=== PATIENT | male | born 1960 | race Caucasian/White ===

== ENCOUNTER 2016-11-23 10:22 | Observation (INO) | payer OTHER ==
[2016-11-23] MEDS ORDERED: HEPARIN SODIUM,PORCINE/D5W PMX 25,000 UNIT in DEXTROSE/WATER 1 500ML.BAG IV STA (10:38)
[2016-11-23] MEDS ORDERED: HEPARIN SODIUM,PORCINE 5,000 UNIT/ML 1 ML VIAL IV STA (10:38)
[2016-11-23] MEDS ORDERED: NITROGLYCERIN OINT 1 INCH/GM PACKET TOPICAL STA (10:38)
[2016-11-23] MEDS ORDERED: SODIUM CHLORIDE 0.9% 1,000 ML IV STA (10:38)
--- NOTE | 2016-11-23 10:45 | ED ---
Chest Pain HPI - General Chief Complaint: Chest Pain Stated Complaint: CHEST PAIN, SENT BY DR GARCIA Time Seen by Provider: 11/23/16 10:31 Source: patient, RN notes reviewed Mode of arrival: wheelchair Limitations: no limitations - History of Present Illness Initial Comments: This is a 56-year-old male with a history of previous heart attack cardiac arrests and stent placement who states he's recently been having episodic chest pain they get really worse earlier this week been on and off he saw his doctor in the office prior to admission he was complaining of 10 he saw his doctor in the office earlier today. He was given oxygen nitroglycerin and aspirin as stated he did appear to be pale at the time of his evaluation in the office and complained of squeezing chest pain. He was complaining earlier of 9/10 severity pain tightness he states is down to about 3 right now in the office he was given aspirin and nitroglycerin which did help the pain. He denies any nausea vomiting fevers chills or sweats. He points to his right lower midsternal region. He does not know if this feels similar to his previous episode is again he had a cardiac arrest at that time. He does have a strong family history of heart disease and stroke. He does smoke 4 cigarettes a day. The patient refused EMS transportation to the hospital per his doctor. MD Complaint: chest pain - Related Data Home Medications Medication Instructions Recorded Confirmed Gvuxkua-Cdfk-Aeyj [id number] 1 tab PO Q4-6H PRN 03/10/16 11/23/16 [Excedrin] Atorvastatin [Lipitor] 40 mg PO QAM 03/10/16 11/23/16 Clopidogrel [Plavix] 75 mg PO QAM 03/10/16 11/23/16 Furosemide [Lasix] 40 mg PO QAM 03/10/16 11/23/16 Isosorbide Mononitrate [Isosorbide 30 mg PO QAM 03/10/16 11/23/16 Mononitrate ER] Lisinopril [Zestril] 2.5 mg PO QAM 03/10/16 11/23/16 Metoprolol Succinate (ER) [Toprol 25 mg PO QAM 03/10/16 11/23/16 XL] Nitroglycerin Sl Tabs [Nitrostat] 0.4 mg PO Q5M PRN 03/10/16 11/23/16 Potassium Chloride [K-Tab ER] 10 meq PO QAM 03/10/16 11/23/16 levETIRAcetam [Keppra] 500 mg PO BID 03/10/16 11/23/16 Albuterol Sulfate [Ventolin HFA] 2 puff INHALATION RT-Q4H PRN 11/23/16 11/23/16 Aspirin EC [Ecotrin Low Dose] 81 mg PO DAILY 11/23/16 11/23/16 Beclomethasone Dip 80 Mcg/Puff 1 puff INHALATION RT-BID 11/23/16 11/23/16 [Qvar 80 mcg] Allergies Allergy/AdvReac Type Severity Reaction Status Date / Time atomoxetine HCl AdvReac HEADACHE Verified 03/10/16 17:35 [From Huong] Review of Systems ROS Statement: Those systems with pertinent positive or pertinent negative responses have been documented in the HPI. ROS Other: All systems not noted in ROS Statement are negative. EKG Findings - EKG Results: EKG: interpreted by KENTON, sinus rhythm (Sinus rhythm with a rate of 81. Interval 166 QRS duration 86 daily since QTC of 344/399 left axis deviation low- voltage old inferior changes this is compared to one submitted from the office which shows no definite change.) Past Medical History Past Medical History: Coronary Artery Disease (CAD), Osteoarthritis (OA), Seizure Disorder, Sleep Apnea/CPAP/BIPAP Additional Past Medical History / Comment(s): CURRENT: SOB AND CHEST PAIN. STATES HE "FLAT LINED" WHEN HE HAD HIS FIRST CARDIAC STENT. SEIZURE (BLACKS OUT , HAD ONE 03/10/16. USES NO CPAP. History of Any Multi-Drug Resistant Organisms: None Reported Past Surgical History: Heart Catheterization With Stent Additional Past Surgical History / Comment(s): RETACHEMENT OF LEFT THUMB. ORIF LEFT THUMB Past Anesthesia/Blood Transfusion Reactions: No Reported Reaction Date of Last Stent Placement:: 08/17/14 Past Psychological History: Anxiety Additional Psychological History / Comment(s): NO MEDS AT THIS TIME. Smoking Status: Current every day smoker Past Alcohol Use History: None Reported Additional Past Alcohol Use History / Comment(s): HAS SMOKED SINCE AGE 15YRS, LESS THAN ONE PPD. Past Drug Use History: None Reported - Past Family History Mother Family Medical History: CVA/TIA General Exam - General Exam Comments Initial Comments: This is a well-developed well-nourished awake alert oriented 3 male Limitations: no limitations General appearance: alert, in no apparent distress Head exam: Present: atraumatic, normocephalic, normal inspection Eye exam: Present: normal appearance, PERRL, EOMI. Absent: scleral icterus, conjunctival injection, periorbital swelling ENT exam: Present: normal exam, mucous membranes moist Neck exam: Present: normal inspection. Absent: tenderness, meningismus, lymphadenopathy Respiratory exam: Present: normal lung sounds bilaterally. Absent: respiratory distress, wheezes, rales, rhonchi, stridor Cardiovascular Exam: Present: regular rate, normal rhythm, normal heart sounds. Absent: systolic murmur, diastolic murmur, rubs, gallop, clicks GI/Abdominal exam: Present: soft, normal bowel sounds. Absent: distended, tenderness, guarding, rebound, rigid Extremities exam: Present: normal inspection, full ROM, normal capillary refill. Absent: tenderness, pedal edema, joint swelling, calf tenderness Back exam: Present: normal inspection Neurological exam: Present: alert, oriented X3, CN II-XII intact Psychiatric exam: Present: normal affect, normal mood Skin exam: Present: warm, dry, intact, normal color. Absent: rash Course Vital Signs 11/23/16 11/23/16 10:27 11:26 Temperature 97.7 F Pulse Rate 83 68 Respiratory 22 18 Rate Blood Pressure 147/89 116/80 O2 Sat by Pulse 96 97 Oximetry Chest Pain MDM - MDM X-rays are unremarkable I did discuss the findings the patient. Patient be admitted he is still having some pain is unclear whether this represents cardiac or psoas musculoskeletal dull there is no reproducibility to this. He does point to the lower sternal margins Critical Care Time Critical Care Time: Yes Critical Care Time: Sink was initial presentation was discussed with the patient's physician discuss with the patient family history physical lab and x-ray evaluation. Reevaluation the patient response to therapy. Admission orders discussed with the admitting physician and documentation of the above. Disposition Clinical Impression: Chest pain, Unstable angina pectoris Disposition: ADMITTED IP TO THIS [facility] Condition: Stable
[2016-11-23 11:01] LABS: Basophils # (A) 0.1 k/uL (0-0.2); Basophils % (A) 1 %; CH 31.1; CHCM 34.5; Eosinophils # (A) 0.1 k/uL (0-0.7); Eosinophils % (A) 1 %; HCT 47.6 % (39.0-53.0); HDW 2.65; HGB 16.3 gm/dL (13.0-17.5); Luc # (Auto) 0.26; Luc % (Auto) 3; Lymphocytes # (A) 1.7 k/uL (1.0-4.8); Lymphocytes % (A) 22 %; MCH 31.1 pg (25.0-35.0); MCHC 34.4 g/dL (31.0-37.0); MCV 90.5 fL (80.0-100.0); Monocytes # (A) 0.4 k/uL (0-1.0); Monocytes % (A) 5 %; Neutrophils # (A) 5.1 k/uL (1.3-7.7); Neutrophils % (A) 68 %; RBC 5.26 m/uL (4.30-5.90); RDW 12.7 % (11.5-15.5); WBC 7.6 k/uL (3.8-10.6); WBC (Perox) 7.73
[2016-11-23 11:06] LABS: INR 1.1 (<1.1)
[2016-11-23 11:15] LABS: ALT 30 U/L (21-72); AST 21 U/L (17-59); Alkaline Phosphatase 71 U/L (38-126); Anion Gap 11 mmol/L; Blood Urea Nitrogen 16 mg/dL (9-20); Calcium 9.9 mg/dL (8.4-10.2); Carbon Dioxide 26 mmol/L (22-30); Chloride 104 mmol/L (98-107); Glucose 106 mg/dL (74-99); Magnesium 1.8 mg/dL (1.6-2.3); Non-African American GFR(MDRD) >60 (>60 ml/min/1.73 sqM); Potassium 4.3 mmol/L (3.5-5.1); Sodium 141 mmol/L (137-145); Total Bilirubin 0.8 mg/dL (0.2-1.3); Total Protein 7.1 g/dL (6.3-8.2)
[2016-11-23 11:21] LABS: Creatine Kinase 57 U/L (55-170)
--- NOTE | 2016-11-23 11:25 | XR ---
EXAMINATION TYPE: XR chest 2V DATE OF EXAM: 11/23/2016 11:15 AM COMPARISON: NONE HISTORY: Chest pain TECHNIQUE: Frontal and lateral views of the chest are obtained. FINDINGS: Minimal patchy density present at the posterior costophrenic angles. No pneumothorax or pl eural effusion. There are overlying cardiac leads. Cardiomediastinal silhouette, pulmonary vascularit y and giacomo are within normal limits. IMPRESSION: There may be some basilar atelectasis, correlate to exclude pneumonia. Follow-up as barbara cated.
[2016-11-23 11:34] LABS: Creatine Kinase MB 0.6 ng/mL (0.0-2.4); Troponin I <0.012 ng/mL (0.000-0.034)
[2016-11-23] MEDS ORDERED: NITROGLYCERIN SL TABS 0.4 MG TAB SUBLINGUAL PRN (12:36)
[2016-11-23] MEDS ORDERED: SODIUM CHLORIDE 0.9% 1,000 ML IV SCH (12:45)
--- NOTE | 2016-11-23 14:42 | P.HPIM ---
History of Present Illness H&P Date: 11/23/16 Chief Complaint: Chest pain Is a 56-year-old gentleman patient of Dr. Cartwright, he has underlying history of CAD , hyperlipidemia cardiac arrest hypertension obstructive sleep apnea with cardiac stents in 2013 and is a current smoker, COPD, seizures and recurrent syncope. he sees dr Stanton for it . He had episodes of chest pain and chest pressure early this week off and on and decided to see his doctor earlier today. Patient was evaluated and was given nitroglycerin and aspirin oxygen, and was recommended to be transported to the hospital by ambulance which patient has refused. Pain is in the right lower mid sternal region without any regurgitation to the arms or neck nitroglycerin has relieved some of his chest pressure, during his last mi with cardiac arrest, patient did not have any chest pain that he can recollect. Patient denies any palpitations he has frequ ent lightheadedness cough fever or chills no nausea no vomiting no aspiration no hemoptysis. He mentions that when he passes out this is preceded by chest discomfort then lightheaded then he would lose consciousness Emergency room he was evaluated by the ER doctor, EKG showed normal sinus rhythm with left axis deviation, old infarcts Q waves in II, III, and F VF, no acute ST-T wave changes, chest x-ray shows basilar atelectasis without any cardiomegaly, thorax minimal patchy density at the posterior costophrenic angles , initial troponin of 0.012 glucose 106 creatinine 0.9, no d-dimer was done. Patient was admitted for 23 hour observation with cardiology consultation echocardiogram and cardiac biomarkers serially EKGs Review of Systems Constitutional: Reports as per HPI, Denies anorexia, Denies chills, Denies chronic headaches, Denies chronic pain, Denies daytime sleepiness, Denies fatigue, Denies fever, Denies lethargy, Denies malaise, Denies night sweats, Denies poor appetite, Denies sweats, Denies weakness, Denies weight gain, Denies weight loss Ears, nose, mouth and throat: Reports as per HPI, Denies ant. neck pain, Denies bleeding gums, Denies dental pain, Denies dysphagia, Denies epistaxis, Denies headache, Denies hoarseness, Denies mouth pain, Denies nasal congestion, Denies nasal discharge, Denies neck fullness/pressure, Denies neck lump, Denies nose pain, Denies odynophagia, Denies post-nasal drip, Denies sinus pain, Denies sinus pressure, Denies swelling in mouth, Denies swelling in throat, Denies sore throat, Denies vertigo, Denies voice changes Cardiovascular: Reports as per HPI, Reports chest pain, Reports lightheadedness , Reports syncope, Denies claudication, Denies decreased exercise tolerance, Denies dyspnea on exertion, Denies edema, Denies high blood pressure, Denies irregular heart beat, Denies leg edema, Denies orthopnea, Denies palpitations, Denies paroxysmal nocturnal dyspnea, Denies phlebitis, Denies rapid heart beat, Denies shortness of breath Respiratory: Reports as per HPI, Denies congestion, Denies cough, Denies cough with sputum, Denies dyspnea, Denies excessive sputum, Denies hemoptysis, Denies home oxygen, Denies pain, Denies pain on inspiration, Denies pleurisy, Denies respiratory infections, Denies sleep apnea, Denies snoring, Denies wheezing Gastrointestinal: Reports as per HPI, Denies abdominal pain, Denies belching, Denies bloating, Denies BRBPR, Denies change in bowel habits, Denies coffee ground emesis, Denies constipation, Denies diarrhea, Denies dyspepsia, Denies early satiety, Denies excessive gas, Denies heartburn, Denies hematemesis, Denies hematochezia, Denies indigestion, Denies jaundice, Denies lactose intolerance, Denies loss of appetite, Denies melena, Denies nausea, Denies vomiting Genitourinary: Reports as per HPI, Denies decreased libido, Denies difficulties fathering child, Denies discharge, Denies dysuria, Denies erectile dysfunction, Denies flank pain, Denies genital pain, Denies genital sores, Denies hematuria, Denies impotence, Denies incontinence, Denies kidney stones, Denies nocturia, Denies polyuria, Denies testicular lump, Denies testicular pain, Denies urinary frequency, Denies urinary hesitancy, Denies urinary retention Musculoskeletal: Reports as per HPI, Denies arm numbness/tingling, Denies atrophy, Denies fractures, Denies frequent falls, Denies gait dysfunction, Denies hot joints, Denies leg numbness/tingling, Denies limitation of motion, Denies loss of height, Denies low back pain, Denies morning stiffness, Denies muscle cramps, Denies muscle weakness, Denies myalgias, Denies neck pain, Denies neck stiffness, Denies prior amputations, Denies redness of joints, Denies shooting arm pain, Denies shooting leg pain Integumentary: Reports as per HPI, Denies acne, Denies boils, Denies brittle nails, Denies change in hair/nails, Denies color changes, Denies darkening of skin, Denies depigmentation, Denies dryness, Denies foot/leg ulcers, Denies growths, Denies hirsutism, Denies lesions, Denies onychomycosis, Denies pruritus , Denies rash, Denies sores, Denies striae, Denies unusual bruising, Denies wounds Neurological: Reports as per HPI, Denies aphasia, Denies ataxia, Denies balance difficulties, Denies burning pain, Denies change in mentation, Denies change in smell/taste, Denies change in speech, Denies confusion, Denies convulsions, Denies double vision, Denies gait dysfunction, Denies head injury, Denies headaches, Denies hearing difficulties, Denies lack of coordination, Denies loss of vision, Denies memory loss, Denies migraines, Denies motor disturbance, Denies numbness, Denies paralysis, Denies paresthesias, Denies seizures, Denies sensory deficit, Denies spasticity, Denies syncope, Denies tic, Denies tingling , Denies transient paralysis, Denies tremors, Denies vertigo, Denies weakness, Denies visual changes Psychiatric: Reports as per HPI, Denies anhedonia, Denies anxiety, Denies anxiety attacks, Denies change in appetite, Denies change in libido, Denies change in sleep habits, Denies confusion, Denies depression, Denies difficulty concentrating, Denies disorientation, Denies hallucinations, Denies hopelessness , Denies hypersomnia, Denies insomnia, Denies irritability, Denies memory loss, Denies mood swings, Denies paranoia, Denies sadness/tearfulness, Denies sleep disturbances, Denies suicidal ideation Endocrine: Reports as per HPI, Denies cold intolerance, Denies deepening of the voice, Denies excessive sweating, Denies excessive thirst, Denies fatigue, Denies flushing, Denies heat intolerance, Denies high blood sugars, Denies increase in ring/shoe/hat size, Denies low blood sugars, Denies nocturia, Denies palpitations, Denies polydipsia, Denies polyphagia, Denies polyuria, Denies proptosis, Denies recent glucocorticoid use, Denies thyroid mass, Denies weight change Hematologic/Lymphatic: Reports as per HPI, Denies easy bleeding, Denies easy bruising, Denies lymphadenopathy, Denies lymphedema, Denies thrombophilia Allergic/Immunologic: Reports as per HPI, Denies allergic rhinitis, Denies anaphylaxis, Denies angioedema, Denies gluten intolerance, Denies persistent infections, Denies seasonal allergies, Denies urticaria, Denies wheezing Past Medical History Past Medical History: Coronary Artery Disease (CAD), Chest Pain / Angina, Hyperlipidemia, Hypertension, Osteoarthritis (OA), Sleep Apnea/CPAP/BIPAP Additional Past Medical History / Comment(s): States he was in cardiac arrest for 45 minutes when he had a cardiac stent in 2013, has "black outs"- has seen neurologist but not sure what is causing these black outs/? seizures-last time 2 days ago, cervical pain and headaches, WILLY-USES NO CPAP. History of Any Multi-Drug Resistant Organisms: None Reported Past Surgical History: Heart Catheterization With Stent Additional Past Surgical History / Comment(s): 08/17/14 PCI with stent, RETACHEMENT OF LEFT THUMB. ORIF LEFT THUMB Past Anesthesia/Blood Transfusion Reactions: No Reported Reaction Additional Past Anesthesia/Blood Transfusion Reaction / Comment(s): Woke during thumb surgery. Date of Last Stent Placement:: 08/17/14 Past Psychological History: Anxiety Additional Psychological History / Comment(s): Pt states he has medication for his anxiety which helps. He states he has severe anxiety around groups of people and strangers. He resides with his parents. He has not driven since 2013, his sister gives him rides to [employer]. He is otherwise independent. He states he has depression but is not suicidal. Smoking Status: Current every day smoker Past Alcohol Use History: None Reported Additional Past Alcohol Use History / Comment(s): HAS SMOKED SINCE AGE 15YRS, LESS THAN ONE PPD and now down to 4 cigs a day. Past Drug Use History: None Reported - Past Family History Mother Family Medical History: CVA/TIA, Diabetes Mellitus Additional Family Medical History / Comment(s): Mother has heart problems. She is currently hospitalized at [facility]. She is 83 yrs old. Father Family Medical History: CVA/TIA Additional Family Medical History / Comment(s): Father is 83 yrs old. Medications and Allergies Home Medications Medication Instructions Recorded Confirmed Type Wdyleit-Yvyy-Yhzl [id number] 1 tab PO Q4-6H PRN 03/10/16 11/23/16 History [Excedrin] Atorvastatin [Lipitor] 40 mg PO QAM 03/10/16 11/23/16 History Clopidogrel [Plavix] 75 mg PO QAM 03/10/16 11/23/16 History Furosemide [Lasix] 40 mg PO QAM 03/10/16 11/23/16 History Isosorbide Mononitrate [Isosorbide 30 mg PO QAM 03/10/16 11/23/16 History Mononitrate ER] Lisinopril [Zestril] 2.5 mg PO QAM 03/10/16 11/23/16 History Metoprolol Succinate (ER) [Toprol 25 mg PO QAM 03/10/16 11/23/16 History XL] Nitroglycerin Sl Tabs [Nitrostat] 0.4 mg PO Q5M PRN 03/10/16 11/23/16 History Potassium Chloride [K-Tab ER] 10 meq PO QAM 03/10/16 11/23/16 History levETIRAcetam [Keppra] 500 mg PO BID 03/10/16 11/23/16 History Albuterol Sulfate [Ventolin HFA] 2 puff INHALATION RT-Q4H PRN 11/23/16 11/23/16 History Aspirin EC [Ecotrin Low Dose] 81 mg PO DAILY 11/23/16 11/23/16 History Beclomethasone Dip 80 Mcg/Puff 1 puff INHALATION RT-BID 11/23/16 11/23/16 History [Qvar 80 mcg] Allergies Allergy/AdvReac Type Severity Reaction Status Date / Time atomoxetine HCl AdvReac HEADACHE Verified 03/10/16 17:35 [From Strattera] Physical Exam Vitals: Vital Signs Pulse Resp BP Pulse Ox 11/23/16 13:20 52 L 16 131/87 97 - Constitutional General appearance: average body habitus, cooperative, no acute distress - EENT Eyes: anicteric sclerae, EOMI, PERRLA, dentition normal, normal appearance ENT: hearing grossly normal, NA/AT, normal oropharynx - Neck Neck: no lymphadenopathy, normal ROM, no other, no rigidity, no stridor, no thyromegaly - Respiratory Respiratory: bilateral: CTA, negative: diminished, dullness, rales, rhonchi, wheezing - Cardiovascular Rhythm: regular Heart sounds: normal: S1, S2 Abnormal Heart Sounds: no systolic murmur, no diastolic murmur, no rub, no S3 Gallop, no S4 Gallop, no click, no other - Gastrointestinal General gastrointestinal: normal bowel sounds, soft - Integumentary Integumentary: normal, normal turgor - Neurologic Neurologic: CNII-XII intact, focal deficits (none) - Musculoskeletal Musculoskeletal: gait normal, strength equal bilaterally - Psychiatric Psychiatric: A&O x's 3, appropriate affect, intact judgment & insight Results CBC & Chem 7: 11/23/16 10:42 11/23/16 10:42 Labs: Laboratory Results WBC 7.6 k/uL (3.8-10.6) 11/23/16 10:42 RBC 5.26 m/uL (4.30-5.90) 11/23/16 10:42 Hgb 16.3 gm/dL (13.0-17.5) 11/23/16 10:42 Hct 47.6 % (39.0-53.0) 11/23/16 10:42 MCV 90.5 fL (80.0-100.0) 11/23/16 10:42 MCH 31.1 pg (25.0-35.0) 11/23/16 10:42 MCHC 34.4 g/dL (31.0-37.0) 11/23/16 10:42 RDW 12.7 % (11.5-15.5) 11/23/16 10:42 Plt Count 253 k/uL (150-450) 11/23/16 10:42 Neutrophils % 68 % 11/23/16 10:42 Lymphocytes % 22 % 11/23/16 10:42 Monocytes % 5 % 11/23/16 10:42 Eosinophils % 1 % 11/23/16 10:42 Basophils % 1 % 11/23/16 10:42 Neutrophils # 5.1 k/uL (1.3-7.7) 11/23/16 10:42 Lymphocytes # 1.7 k/uL (1.0-4.8) 11/23/16 10:42 Monocytes # 0.4 k/uL (0-1.0) 11/23/16 10:42 Eosinophils # 0.1 k/uL (0-0.7) 11/23/16 10:42 Basophils # 0.1 k/uL (0-0.2) 11/23/16 10:42 PT 11.0 sec (9.0-12.0) 11/23/16 10:42 INR 1.1 (<1.1) 11/23/16 10:42 APTT 24.0 sec (22.0-30.0) 11/23/16 10:42 Sodium 141 mmol/L (137-145) 11/23/16 10:42 Potassium 4.3 mmol/L (3.5-5.1) 11/23/16 10:42 Chloride 104 mmol/L (98-107) 11/23/16 10:42 Carbon Dioxide 26 mmol/L (22-30) 11/23/16 10:42 Anion Gap 11 mmol/L 11/23/16 10:42 BUN 16 mg/dL (9-20) 11/23/16 10:42 Creatinine 0.99 mg/dL (0.66-1.25) 11/23/16 10:42 Est GFR (MDRD) Af Amer >60 (>60 ml/min/1.73 sqM) 11/23/16 10:42 Est GFR (MDRD) Non-Af >60 (>60 ml/min/1.73 sqM) 11/23/16 10:42 Glucose 106 mg/dL (74-99) H 11/23/16 10:42 Calcium 9.9 mg/dL (8.4-10.2) 11/23/16 10:42 Magnesium 1.8 mg/dL (1.6-2.3) 11/23/16 10:42 Total Bilirubin 0.8 mg/dL (0.2-1.3) 11/23/16 10:42 AST 21 U/L (17-59) 11/23/16 10:42 ALT 30 U/L (21-72) 11/23/16 10:42 Alkaline Phosphatase 71 U/L (38-126) 11/23/16 10:42 Total Creatine Kinase 57 U/L (55-170) 11/23/16 10:42 CK-MB (CK-2) 0.6 ng/mL (0.0-2.4) 11/23/16 10:42 CK-MB (CK-2) Rel Index 1.1 11/23/16 10:42 Troponin I <0.012 ng/mL (0.000-0.034) 11/23/16 10:42 Total Protein 7.1 g/dL (6.3-8.2) 11/23/16 10:42 Albumin 4.3 g/dL (3.5-5.0) 11/23/16 10:42 Thrombosis Risk Factor Assmnt - DVT/VTE Prophylaxis DVT/VTE Prophylaxis: Pharmacologic Prophylaxis ordered - Choose All That Apply Any of the Below Risk Factors Present?: Yes Each Factor Represents 1 point: Age 41-60 years, Obesity (BMI >25) Other Risk Factors: No Other congenital or acquired thrombophilia - If yes, enter type in comment: No Thrombosis Risk Factor Assessment Total Risk Factor Score: 2 Thrombosis Risk Factor Assessment Level: Low Risk Assessment and Plan Plan: 1. Chest pain with known history of CAD, unstable angina suspected, patient has underlying cyst factors include hypertension and tobacco hyperlipidemia patient is in consultation by cardiology with an echocardiogram, cardiac troponins fasting lipids and he currently is receiving IV heparin and Nitropaste. Patient would need to have full evaluation to include either a stress test or cardiac cath depending on troponin evaluation 2. recurrent syncope, this is usually preceded by chestpain and light headedness. patient will need 30 d event monitor as outpatient. his last syncope 2 days ago . currenly not driving, sister brings him to appointments 3Hyperlipidemia on Lipitor 40 mg daily, 4. CAD with previous cardiac stent in 2013, one-vessel disease, continue on Lipitor 40, Plavix and 5 mg daily, aspirin 1025 mg daily, Toprol-XL 25 mg every morning, Lasix 40 mg daily 5. COPD on Pulmicort in view off Qvar twice a day, albuterol when necessary 6. Seizure disorder on Keppra 500 mg twice a day follows with neurologist as an outpatient 7. Current tobacco use at 4 cigarettes per day patient was counseled on a permanent smoking cessation program 8. DVT prophylaxis patient currently is on IV heparin 9. GI prophylaxis Pepcid by mouth X Expected length of stay 24-48 hours depending on cardiology recommendation for heart cath
[2016-11-23] MEDS ORDERED: NICOTINE 21MG/24HR PATCH TRANSDERM STA (17:02)
[2016-11-23 17:39] LABS: Creatine Kinase 55 U/L (55-170)
[2016-11-23 17:55] LABS: Creatine Kinase MB 0.5 ng/mL (0.0-2.4); Troponin I <0.012 ng/mL (0.000-0.034)
[2016-11-23] MEDS: ALBUTEROL NEBULIZED 2.5 MG/3 ML INHALATION PRN (20:01)
[2016-11-23] MEDS: BUDESONIDE 0.5 MG/2 ML NEBU INHALATION SCH (20:01)
[2016-11-23] MEDS: levETIRAcetam 500 MG TAB PO SCH (20:41)
[2016-11-23] MEDS: NITROGLYCERIN OINT 1 INCH/GM PACKET TOPICAL SCH (20:43)
[2016-11-23 23:11] LABS: Creatine Kinase 45 U/L (55-170)
[2016-11-23 23:23] LABS: Creatine Kinase MB 0.4 ng/mL (0.0-2.4); Troponin I <0.012 ng/mL (0.000-0.034)
[2016-11-24] MEDS: NITROGLYCERIN OINT 1 INCH/GM PACKET TOPICAL SCH ×2 (02:06→06:17)
[2016-11-24 07:38] VITALS: BP 107/63; RESP 18; TEMP 97.8
[2016-11-24] MEDS: BUDESONIDE 0.5 MG/2 ML NEBU INHALATION SCH (08:30)
[2016-11-24] MEDS: ALBUTEROL NEBULIZED 2.5 MG/3 ML INHALATION PRN (08:30)
[2016-11-24 08:40] LABS: Cholesterol 169 mg/dL (<200); HDL Cholesterol 37 mg/dL (40-60); Triglycerides 77 mg/dL (<150)
[2016-11-24 08:45] VITALS: PULSE 76
[2016-11-24] MEDS ORDERED: FUROSEMIDE 40 MG TAB PO SCH (09:00)
[2016-11-24] MEDS ORDERED: LISINOPRIL 2.5 MG TAB PO SCH (09:00)
[2016-11-24] MEDS ORDERED: ASPIRIN 325 MG TAB PO SCH (09:00)
[2016-11-24] MEDS ORDERED: METOPROLOL SUCCINATE (ER) 25 MG TAB.ER.24H PO SCH (09:00)
[2016-11-24] MEDS ORDERED: NICOTINE 21MG/24HR PATCH TRANSDERM SCH (09:00)
[2016-11-24] MEDS ORDERED: CLOPIDOGREL 75 MG TAB PO SCH (09:00)
[2016-11-24] MEDS ORDERED: ISOSORBIDE MONONITRATE ER 30 MG TAB.ER.24H PO SCH (09:00)
[2016-11-24] MEDS ORDERED: ATORVASTATIN 40 MG TAB PO SCH (09:00)
[2016-11-24] MEDS ORDERED: POTASSIUM CHLORIDE ER 10 MEQ TAB.ER.PRT PO SCH (09:00)
--- NOTE | 2016-11-24 09:33 | P.CRDCN ---
History of Present Illness Consult date: 11/24/16 Chief complaint: Chest pain History of present illness: This is a pleasant 56-year-old gentleman who sees Dr. VC Correa as an outpatient with a known history of coronary artery disease and prior stenting of the LAD was performed at [facility] with the last heart catheterization was performed last year in [address] VC Correa and showed mild nonobstructive CAD with patent stent in the LAD presented to the hospital complaining of chest discomfort. He was in his usual state of health yesterday when he started experiencing chest discomfort as sharp kind of discomfort without any radiation and without any associated symptoms. The patient was ruled out for acute coronary event. The cardiac enzymes came in unremarkable. The EKG showed sinus rhythm without ischemic changes. From the cardiovascular standpoint of view, the patient can be discharged home. I would request the patient to follow-up with Dr. VC Correa where a heart monitor to rule out any cardiac arrhythmia which could be presenting as a chest discomfort. Past Medical History Past Medical History: Coronary Artery Disease (CAD), Chest Pain / Angina, Hyperlipidemia, Hypertension, Osteoarthritis (OA), Sleep Apnea/CPAP/BIPAP Additional Past Medical History / Comment(s): States he was in cardiac arrest for 45 minutes when he had a cardiac stent in 2013, has "black outs"- has seen neurologist but not sure what is causing these black outs/? seizures-last time 2 days ago, cervical pain and headaches, WILLY-USES NO CPAP. History of Any Multi-Drug Resistant Organisms: None Reported Past Surgical History: Heart Catheterization With Stent Additional Past Surgical History / Comment(s): 08/17/14 PCI with stent, RETACHEMENT OF LEFT THUMB. ORIF LEFT THUMB Past Anesthesia/Blood Transfusion Reactions: No Reported Reaction Additional Past Anesthesia/Blood Transfusion Reaction / Comment(s): Woke during thumb surgery. Date of Last Stent Placement:: 08/17/14 Past Psychological History: Anxiety Additional Psychological History / Comment(s): Pt states he has medication for his anxiety which helps. He states he has severe anxiety around groups of people and strangers. He resides with his parents. He has not driven since 2013, his sister gives him rides to appts. He is otherwise independent. He states he has depression but is not suicidal. Smoking Status: Current every day smoker Past Alcohol Use History: None Reported Additional Past Alcohol Use History / Comment(s): HAS SMOKED SINCE AGE 15YRS, LESS THAN ONE PPD and now down to 4 cigs a day. Past Drug Use History: None Reported - Past Family History Mother Family Medical History: CVA/TIA, Diabetes Mellitus Additional Family Medical History / Comment(s): Mother has heart problems. She is currently hospitalized at [facility]. She is 83 yrs old. Father Family Medical History: CVA/TIA Additional Family Medical History / Comment(s): Father is 83 yrs old. Medications and Allergies Home Medications Medication Instructions Recorded Confirmed Type [id number] 1 tab PO Q4-6H PRN 03/10/16 11/23/16 History [Excedrin] Atorvastatin [Lipitor] 40 mg PO QAM 03/10/16 11/23/16 History Clopidogrel [Plavix] 75 mg PO QAM 03/10/16 11/23/16 History Furosemide [Lasix] 40 mg PO QAM 03/10/16 11/23/16 History Isosorbide Mononitrate [Isosorbide 30 mg PO QAM 03/10/16 11/23/16 History Mononitrate ER] Lisinopril [Zestril] 2.5 mg PO QAM 03/10/16 11/23/16 History Metoprolol Succinate (ER) [Toprol 25 mg PO QAM 03/10/16 11/23/16 History XL] Nitroglycerin Sl Tabs [Nitrostat] 0.4 mg PO Q5M PRN 03/10/16 11/23/16 History Potassium Chloride [K-Tab ER] 10 meq PO QAM 03/10/16 11/23/16 History levETIRAcetam [Keppra] 500 mg PO BID 03/10/16 11/23/16 History Albuterol Sulfate [Ventolin HFA] 2 puff INHALATION RT-Q4H PRN 11/23/16 11/23/16 History Aspirin EC [Ecotrin Low Dose] 81 mg PO DAILY 11/23/16 11/23/16 History Beclomethasone Dip 80 Mcg/Puff 1 puff INHALATION RT-BID 11/23/16 11/23/16 History [Qvar 80 mcg] Allergies Allergy/AdvReac Type Severity Reaction Status Date / Time atomoxetine HCl AdvReac HEADACHE Verified 11/23/16 22:36 [From Strattera] Physical Exam Vitals: Vital Signs Temp Pulse Pulse Resp BP BP Pulse Ox 11/24/16 08:45 76 11/24/16 08:32 82 95 11/24/16 07:38 97.8 F 87 18 107/63 94 L 11/24/16 04:00 98.3 F 87 16 97/55 95 11/23/16 23:57 80 16 11/23/16 23:42 98.1 F 80 16 107/53 95 11/23/16 20:27 70 11/23/16 20:09 68 11/23/16 20:00 70 18 11/23/16 18:00 97.5 F L 69 18 110/73 96 11/23/16 15:26 97.4 F L 72 18 120/79 96 11/23/16 13:20 52 L 16 131/87 97 Intake and Output 11/23/16 11/24/16 11/24/16 22:59 06:59 14:59 Intake Total 460 Balance 460 Intake: Oral 460 Other: Voiding Method Toilet Toilet # Voids 1 Weight 81.1 kg 79 kg - Constitutional General appearance: no acute distress - Respiratory Respiratory: bilateral: CTA - Cardiovascular Rhythm: regular Heart sounds: normal: S1, S2 Results 11/23/16 10:42 11/23/16 10:42 Cardiac Enzymes 11/23/16 11/23/16 Range/Units 17:05 22:36 CK-MB (CK-2) 0.5 0.4 (0.0-2.4) ng/mL Troponin I <0.012 <0.012 (0.000-0.034) ng/mL Lipids 11/24/16 Range/Units 07:36 Triglycerides 77 (<150) mg/dL Cholesterol 169 (<200) mg/dL HDL Cholesterol 37 L (40-60) mg/dL Current Medications Generic Name Dose Route Start Last Admin Trade Name Freq PRN Reason Stop Dose Admin Albuterol Sulfate 2.5 mg 11/23/16 12:38 11/24/16 08:30 Ventolin Nebulized INHALATION 2.5 mg RT-Q4H PRN Administration Shortness Of Breath Aspirin 325 mg 11/24/16 09:00 Aspirin PO DAILY [facility] Atorvastatin Calcium 40 mg 11/24/16 09:00 Lipitor PO QAM [facility] Budesonide 0.5 mg 11/23/16 20:00 11/24/16 08:30 Pulmicort INHALATION 0.5 mg RT-BID JOSS Administration Clopidogrel Bisulfate 75 mg 11/24/16 09:00 Plavix PO QAM [facility] Furosemide 40 mg 11/24/16 09:00 Lasix PO QAM [facility] Sodium Chloride 1,000 mls @ 20 mls/hr 11/23/16 12:45 11/23/16 20:42 Saline 0.9% IV 20 mls/hr .Q24H JOSS Administration Levetiracetam 500 mg 11/23/16 21:00 11/23/16 20:41 Keppra PO 500 mg BID JOSS Administration Lisinopril 2.5 mg 11/24/16 09:00 Zestril PO QAM [facility] Metoprolol Succinate 25 mg 11/24/16 09:00 Toprol Xl PO QAM [facility] Nicotine 1 patch 11/24/16 09:00 Habitrol 21mg/24hr Patch TRANSDERM DAILY [facility] Nitroglycerin 1 inch 11/23/16 18:00 11/24/16 06:17 Nitro-Bid Oint TOPICAL 1 inch Q6HR JOSS Administration Nitroglycerin 0.4 mg 11/23/16 12:36 Nitrostat SUBLINGUAL Q5M PRN Chest Pain Potassium Chloride 10 meq 11/24/16 09:00 K-Dur 10 PO QAM [facility] Intake and Output 11/23/16 11/24/16 11/24/16 22:59 06:59 14:59 Intake Total 460 Balance 460 Intake: Oral 460 Other: Voiding Method Toilet Toilet # Voids 1 Weight 81.1 kg 79 kg Assessment and Plan Plan: Assessment Atypical chest pain Known CAD with prior LAD stenting Multiple comorbid conditions Plan The patient was ruled out for acute coronary event From the cardiovascular standpoint of view, he can be discharged home
[2016-11-24] MEDS: levETIRAcetam 500 MG TAB PO SCH (09:49)
--- NOTE | 2016-11-24 11:06 | ECHOF ---
Referral Reason:Unstable angina MEASUREMENTS -------- HEIGHT: 167.6 cm WEIGHT: 83.9 kg BP: 131/87 IVSd: 0.8 cm (0.6 - 1.1) LVIDd: 5.0 cm (3.9 - 5.3) LVPWd: 1.1 cm (0.6 - 1.1) IVSs: 1.8 cm LVIDs: 2.9 cm LVPWs: 1.7 cm Ao Diam: 2.8 cm (2.0 - 3.7) AV Cusp: 2.2 cm (1.5 - 2.6) LA Diam: 2.8 cm (2.7 - 3.8) MV EXCURSION: 24.642 mm (> 18.000) MV EF SLOPE: 118 mm/s (70 - 150) EPSS: 0.9 cm MV E Robbie: 0.41 m/s MV DecT: 180 ms MV A Robbie: 0.55 m/s MV E/A Ratio: 0.74 RAP: 5.00 mmHg RVSP: 26.42 mmHg FINDINGS -------- Sinus rhythm. This was a technically good study. The left ventricular size is normal. Left ventricular wall thickness is normal. Overall left ventricular systolic function is normal with, an EF between 55 - 60 %. The right ventricle is normal in size and function. The left atrium is normal in size. The right atrium is normal in size. The aortic valve is trileaflet, and appears structurally normal. No aortic stenosis or regurgitation. The mitral valve is normal. There is trace mitral regurgitation. Trace tricuspid regurgitation present. The right ventricular systolic pressure, as measured by Doppler, is 26.42mmHg. There is no pulmonic regurgitation present. The aortic root size is normal. There is no pericardial effusion. CONCLUSIONS -------- 1. Sinus rhythm. 2. There is no pulmonic regurgitation present. 3. The aortic root size is normal. 4. There is no pericardial effusion. 5. This was a technically good study. 6. Left ventricular wall thickness is normal. 7. Overall left ventricular systolic function is normal with, an EF between 55 - 60 %. 8. The left atrium is normal in size. 9. The aortic valve is trileaflet, and appears structurally normal. No aortic stenosis or regurgitation. 10. There is trace mitral regurgitation. 11. Trace tricuspid regurgitation present. 12. The right ventricular systolic pressure, as measured by Doppler, is 26.42mmHg. MEDICAL AFFAIRS LEADER: Denisha Rockwell RDCS
--- NOTE | 2016-11-24 12:05 | P.DS ---
Providers Date of admission: 11/23/16 12:39 Expected date of discharge: 11/24/16 Attending physician: Lianne Mcfadden Primary care physician: Tien Hall [facility] Course: Is a 56-year-old gentleman patient of Dr. Cartwright, he has underlying history of CAD , hyperlipidemia cardiac arrest hypertension obstructive sleep apnea with cardiac stents in 2013 and is a current smoker, COPD, seizures and recurrent syncope. he sees dr Stanton for it . He had episodes of chest pain and chest pressure early this week off and on and decided to see his doctor earlier today. Patient was evaluated and was given nitroglycerin and aspirin oxygen, and was recommended to be transported to the hospital by ambulance which patient has refused. Pain is in the right lower mid sternal region without any regurgitation to the arms or neck nitroglycerin has relieved some of his chest pressure, during his last mi with cardiac arrest, patient did not have any chest pain that he can recollect. Patient denies any palpitations he has frequ ent lightheadedness cough fever or chills no nausea no vomiting no aspiration no hemoptysis. He mentions that when he passes out this is preceded by chest discomfort then lightheaded then he would lose consciousness Emergency room he was evaluated by the ER doctor, EKG showed normal sinus rhythm with left axis deviation, old infarcts Q waves in II, III, and F VF, no acute ST-T wave changes, chest x-ray shows basilar atelectasis without any cardiomegaly, thorax minimal patchy density at the posterior costophrenic angles , initial troponin of 0.012 glucose 106 creatinine 0.9, no d-dimer was done. Patient was admitted for 23 hour observation with cardiology consultation echocardiogram and cardiac biomarkers serially EKGs 11/24: Repeat troponins have been negative. Triglycerides 77, cholesterol 169, LDL 117, HDL 37. Echocardiogram reveals EF 55-60%, trace mitral regurgitation, trace tricuspid regurgitation. Patient has been seen by Dr. Salinas. Patient ruled out for acute coronary event and recommend following up as an outpatient. Patient will be discharged home today in stable condition. Discharge diagnoses: 1. Chest pain with known history of CAD, unstable angina suspected 2. recurrent syncope, this is usually preceded by chestpain and light headedness. 3. Hyperlipidemia 4. CAD with previous cardiac stent in 2013, one-vessel disease 5. COPD 6. Seizure disorder 7. Current tobacco use at 4 cigarettes per day patient was counseled on a permanent smoking cessation program Discharge plan: Return home Impression and plan of care have been directed as dictated by the signing physician. Elisa Troy nurse practitioner acting as scribe for signing physician. Cc: Dr. Tien Cartwright Patient Condition at Discharge: Good Plan - Discharge Summary Discharge Medication List [id number] [Excedrin] 1 tab PO Q4-6H PRN 03/10/16 [History] Atorvastatin [Lipitor] 40 mg PO QAM 03/10/16 [History] Clopidogrel [Plavix] 75 mg PO QAM 03/10/16 [History] Furosemide [Lasix] 40 mg PO QAM 03/10/16 [History] Isosorbide Mononitrate [Isosorbide Mononitrate ER] 30 mg PO QAM 03/10/16 [ History] Lisinopril [Zestril] 2.5 mg PO QAM 03/10/16 [History] Metoprolol Succinate (ER) [Toprol XL] 25 mg PO QAM 03/10/16 [History] Nitroglycerin Sl Tabs [Nitrostat] 0.4 mg PO Q5M PRN 03/10/16 [History] Potassium Chloride [K-Tab ER] 10 meq PO QAM 03/10/16 [History] levETIRAcetam [Keppra] 500 mg PO BID 03/10/16 [History] Albuterol Sulfate [Ventolin HFA] 2 puff INHALATION RT-Q4H PRN 11/23/16 [History] Aspirin EC [Ecotrin Low Dose] 81 mg PO DAILY 11/23/16 [History] Beclomethasone Dip 80 Mcg/Puff [Qvar 80 mcg] 1 puff INHALATION RT-BID 11/23/16 [ History] Follow up Appointment(s)/Referral(s): [facility] [Provider Group] - 1 Week (Call office for an appointment with Dr. Correa in one week) Tien Cartwright MD [Primary Care Provider] - 1 Week Patient Instructions/Handouts: Chest Pain (GEN) Discharge Disposition: HOME SELF-CARE
== END 2016-11-24 10:42 | disposition home or self-care (01) ==
LOC: EC 10:22 → 3OBS 12:39
PROVIDERS: ADMIT Family Medicine; ATTEND Family Medicine
DX: R07.89 Other chest pain (principal); I25.10 Atherosclerotic heart disease of native coronary artery without angina pectoris; R55 Syncope and collapse; E78.5 Hyperlipidemia, unspecified; Z95.5 Presence of coronary angioplasty implant and graft; G47.33 Obstructive sleep apnea (adult) (pediatric); J44.9 Chronic obstructive pulmonary disease, unspecified; G40.909 Epilepsy, unspecified, not intractable, without status epilepticus; I10 Essential (primary) hypertension; F17.210 Nicotine dependence, cigarettes, uncomplicated; I25.2 Old myocardial infarction; Z86.74 Personal history of sudden cardiac arrest; Z82.49 Family history of ischemic heart disease and other diseases of the circulatory system; Z82.3 Family history of stroke; Z79.899 Other long term (current) drug therapy; Z79.02 Long term (current) use of antithrombotics/antiplatelets; Z79.82 Long term (current) use of aspirin; Z88.8 Allergy status to other drugs, medicaments and biological substances; Z83.3 Family history of diabetes mellitus
CPT/HCPCS: 96366 ×6; 96376 ×2; 96361 ×2; 96365 ×2; 99285 ×2; 36415; 94640 ×2; 94760; 93005; 93306; 80061; 80053; 80177; 82550; 82553; 83735; 84484; 85025; 85610; 85730; 71020; G0378 ×2; S4990 ×2; J1644 ×2

== ENCOUNTER 2016-12-18 08:28 | Day surgery (SDC) | payer OTHER ==
[2016-12-14 14:21] VITALS: BMI 28.2
[~2016-12-18 08:28] MED LIST: SODIUM CHLORIDE 0.9% 1,000 ML IV SCH
[2016-12-18 08:48] VITALS: BP 118/77; PULSE 68; RESP 16
[2016-12-18] MEDS ORDERED: SODIUM CHLORIDE 0.9% 500 ML IV ONE (08:53)
== END 2016-12-18 10:22 | disposition home or self-care (01) ==
LOC: CATHEP 08:28
PROVIDERS: ATTEND Internal Medicine Clinical Cardiac Electrophysiology
DX: R55 Syncope and collapse (principal)
CPT/HCPCS: 93005

== ENCOUNTER → 2025-03-25 | Outpatient (CLI) | payer OTHER ==
--- NOTE | 2025-03-25 17:13 | CT ---
EXAMINATION TYPE: CT chest wo/w con DATE OF EXAM: 03/25/2025 9:32 AM COMPARISON: Radiograph 11/23/2016 CLINICAL INDICATION: Male, 64 years old with history of R91.8 lung nodules TECHNIQUE: CT of the chest before and after administration of 100 mL Isovue 300 IV contrast. Coronal and sagittal reconstructions performed. CT DLP: 707.60 mGycm, Automated exposure control for dose reduction was used. FINDINGS: Heart is normal size without pericardial effusion. LAD coronary artery calcifications are present. Borderline ectatic aortic root at 3.6 cm. There There is conventional vessel branching anatomy. No thoracic adenopathy by CT size criteria. There are numerous scattered bilateral pulmonary nodules. Most very small measuring 5 mm and smaller. The largest is subpleural measuring 8 mm in the right middle lobe. Moderate emphysematous change. Visualized upper abdomen shows a tiny 5 mm hypodensity left hepatic bone suggesting a tiny cyst. Bones: Small superior endplate Schmorl's node at T12. There is prominent hypertrophic facet arthropat hy at T10-T11 with grade 1 anterolisthesis here. IMPRESSION: 1. COPD with moderate emphysema. 2. Numerous scattered bilateral pulmonary nodules, most are small measuring 5 mm and smaller. The lar gest measures 8 mm in the right middle lobe. Per Fleischner guidelines, CT at 3-6 months, then at 18 -24 months to ensure stability. [facility], , 03/25/2025 5:11 PM
== END | disposition home or self-care (01) ==
LOC: RADCTMAIN 09:03
PROVIDERS: ATTEND Student in an Organized Health Care Education/Training Program
DX: R91.8 Other nonspecific abnormal finding of lung field (principal); J43.9 Emphysema, unspecified
CPT/HCPCS: 71270; Q9967